=== PATIENT | female | born 1980 ===

== ENCOUNTER → 2017-08-16 | Outpatient (CLI) | payer BC, SELFPAY | END | disposition home or self-care (01) | LOC: LAB EV 17:53 | DX: N75.0 Cyst of Bartholin's gland (principal) | CPT/HCPCS: 87070; 87075; 87205 ==

== ENCOUNTER → 2017-08-29 | Outpatient (CLI) | payer BC, SELFPAY ==
[2017-08-29 16:32] LABS: Specimen Source CERVIX
[2017-08-30 09:02] LABS: Source Cervix
[2017-08-30 09:39] LABS: Candida species (DNA Probe) Negative (NEGATIVE); G. vaginalis (DNA Probe) Negative (NEGATIVE); T. vaginalis (DNA Probe) Positive (NEGATIVE)
== END | disposition home or self-care (01) ==
LOC: LAB SHORT 15:55
PROVIDERS: Advanced Practice Midwife
DX: N89.8 Other specified noninflammatory disorders of vagina (principal)
CPT/HCPCS: 87480; 87491; 87510; 87591; 87660